=== PATIENT | female | born 1995 | race Two or more races ===

== ENCOUNTER 2020-01-21 12:22 | Observation (INO) | payer SELFPAY ==
[2017-11-29 10:55] VITALS: BP 104/64
[~2020-01-21] VITALS: Ht 152.4 cm; Wt 73.9 kg
[~2020-01-21 12:22] MED LIST: DOCU-109 PO; NAPR-683 PO; OXYC1TAB7 PO
[2020-01-21] MEDS ORDERED: IV RINGERS,LACTATED 1000ML 1,000 ML IV SCH (12:45)
[2020-01-21 12:56] LABS: BILIRUBIN,URINE NEGATIVE (NEG); CLARITY,URINE CLEAR; COLOR,URINE YELLOW; NITRITE,URINE NEGATIVE (NEG); PH,URINE 6.5 (<5.0-8.0); PROTEIN,URINE NEGATIVE (NEG-TRACE); UROBILINOGEN,URINE 0.2 mg/dL (0.2 mg/dL)
[2020-01-21 13:21] LABS: BACTERIA,URINE FEW /HPF (0-FEW); RBC,URINE 0 /HPF (0-2); WBC,URINE OCC /HPF (0-4)
[2020-01-21 14:02] LABS: AMNIO PT NEGATIVE
== END 2020-01-21 14:39 | disposition home or self-care (01) ==
LOC: 3 SO LND 12:22
PROVIDERS: ADMIT Obstetrics & Gynecology; ATTEND Obstetrics & Gynecology
DX: O62.9 Abnormality of forces of labor, unspecified (principal); Z3A.39 39 weeks gestation of pregnancy
CPT/HCPCS: 36415; 59025; 81001; 84112; G0378; G0379